=== PATIENT | female | born 1985 | race Caucasian/White ===

== ENCOUNTER 2019-05-08 14:36 | Inpatient (IN) ==
[2019-05-08] MEDS ORDERED: RINGER'S SOLUTION,LACTATED 1,000 ML IV ONE (18:30)
[2019-05-08] MEDS ORDERED: NALBUPHINE HCL 10 MG/ML AMPUL IV PRN ×2 (18:30)
[2019-05-08] MEDS ORDERED: ONDANSETRON 4 MG TAB.RAPDIS PO PRN (18:30)
[2019-05-08] MEDS ORDERED: LIDOCAINE HCL 50 ML VIAL PERI PRN (18:30)
[2019-05-08 18:43] LABS: Hemoglobin 13.6 gm/dL (12.5-16.0); Mean Cell Volume 90.7 fl (78-100); Mean Corpuscular Hemoglobin 30.8 pg (27-31); Mean Platelet Volume 9.2 fl (8-12.5); Neutrophil # 15.1 K/mm3 (1.3-6.0); Neutrophil % 91.6 % (42-75.0); Platelet Count 328 K/mm3 (150-450); Red Blood Count 4.41 M/mm3 (4.2-5.4); Red Cell Distribution Width 12.4 % (11.5-14.0); White Blood Count 16.5 K/mm3 (4.0-10.5)
[2019-05-08 18:57] LABS: BUN/Creatinine Ratio 22.5 (9.0-21.6)
[2019-05-08 18:58] LABS: Albumin * 2.6 gm/dl (3.4-5.0); Anion Gap 16.3 mmol/L (6.8-13.8); Bilirubin, Total 0.3 mg/dL (0.0-1.1); Ca. Corrected For Albumin 10.4 mg/dL (8.4-10.2); Calcium * 9.6 mg/dL (7.9-10.9); Carbon Dioxide 20.8 mmol/L (24-32.6); Potassium 4.1 mmol/L (3.4-4.6); Total Protein 7.1 gm/dL (6.2-8.2)
[2019-05-08] MEDS: MISOPROSTOL 100 MCG TABLET VG PRN (20:01)
[2019-05-08 20:16] LABS: Random Urine Total Protein 25.2 mg/dL (0-12)
[2019-05-08 20:26] LABS: Cocaine Ur Negative (NEGATIVE); Urine Barbiturate Negative (NEGATIVE); Urine Benzodiazepines Negative (NEGATIVE); Urine Opiates Negative (NEGATIVE); Urine PCP Negative (NEGATIVE); Urine THC Negative (NEGATIVE)
[2019-05-09] MEDS: MISOPROSTOL 100 MCG TABLET VG PRN ×3 (02:35→21:50)
[2019-05-09] MEDS: RINGER'S SOLUTION,LACTATED 1,000 ML IV PRN ×3 (06:28→23:54)
--- NOTE | 2019-05-09 08:06 | HP ---
Chief Complaint - Chief Complaint Date of Service: 05/09/19 Time of Service: 07:59 Chief Complaint: Labor induction History of Present Illness: The patient presents for an IOL due to worsening IHCP with her itching worsening. She starting to feel ctx on cytotec. She denies vb or lof. Fetus is active. Medical History (Updated 05/08/19 @ 14:20 by Hannah Good MD) Uterovaginal prolapse, incomplete (Acute) Onset Date: Unknown Patient uses pessary at times Pain management contract agreement (Acute) Onset Date: 2016 Narcotic drug use (Acute) Onset Date: 2016 Low back pain (Acute) Onset Date: 2012 Asymmetric sclerosis Insomnia (Acute) Onset Date: 2012 take prn Xanax to help with sleep Mixed incontinence (Acute) Onset Date: Unknown has pessary Headache (Acute) Onset Date: Unknown GERD (gastroesophageal reflux disease) (Acute) Onset Date: 2012 Depression (Acute) Onset Date: Unknown continue Zoloft unchanged, continue good diet and exercise Cervical dysplasia (Acute) Onset Date: Unknown Breast lump (Acute) Onset Date: Unknown Benign-right breast Asthma, intermittent (Acute) Onset Date: 2012 issued inhaler. If has more frequent sx will redo Advair or other inhaled steroid Asthma (Acute) Onset Date: Unknown Generalized anxiety disorder (Acute) Onset Date: 2012 Allergic rhinitis (Acute) Onset Date: 2012 advised OTC Claritin daily abnormal pap smear (Acute) Onset Date: Unknown Intrahepatic cholestasis of Onset Date: ~05/03/19 Surgical History: Surgical History (Updated 09/27/18 @ 08:35 by Salome Ardon LPN) H/O LEEP (Acute) Onset Date: 06/23/11 LEETZ/LEEP Abnormal colonoscopy (Acute) Onset Date: ~2012 GRIFFIN 1 S/P breast biopsy, right (Acute) Onset Date: ~2005 Family History: Family History (Updated 09/27/18 @ 08:38 by Salome Ardon LPN) Mother Depression Father Diabetes Hypertension Hyperlipemia Depression Brother Myocardial infarction Cancer Sister Depression Grandmother Cancer Grandmother CVA (cerebral vascular accident) Grandfather Drowning Grandfather Myocardial infarction Daughter Alive and well Social History: Preferred Language Venezuelan Smoking Status Current every day smoker (Last Updated 05/08/19 @ 14:20 by Hannah Good MD) No Social History Section defined Review Of Systems (GEN) - Review of Systems Generalized/Overall Review: Present: No Symptoms Reported Misc: All systems neg except as marked Allergies/Adverse Reactions: Allergies Allergy/AdvReac Type Severity Reaction Status Date / Time No Known Allergies Allergy Verified 05/08/19 13:57 seasonal Allergy Uncoded 09/20/18 14:59 Home Medications: HOME MEDICATIONS ursodiol 300 mg capsule 300 mg PO BID 14 Days #28 cap 05/03/19 [Last Taken 05/08/19 08:00] Exam - Exam Vital Signs: Vital Signs - Last Taken Temp 36.3 C 05/08/19 20:08 Pulse 78 05/08/19 20:08 Resp 16 05/08/19 20:08 BP 133/88 05/08/19 20:08 Pulse Ox 100 05/08/19 20:08 Constitutional: Present: Alert, Oriented x3, Cooperative, No distress Respiratory: Present: lungs clear, normal breath sounds Cardiovascular/Chest: Present: regular rate, rhythm, no murmur Abdomen: Present: soft, nontender, nondistended /Rectal: Present: Other - ft/60/-3 Extremity: Present: non-tender, no calf tenderness Skin Exam: Present: normal color, warm/dry, no cyanosis Appearance: Present: appropriate appearance Eye contact: Present: cooperative Thoughts: Present: normal thought pattern Diagnostic Studies: Abnormal Lab Results 05/08/19 05/08/19 05/08/19 Range/Units 18:40 18:40 18:45 WBC 16.5 H (4.0-10.5) K/mm3 Immature Gran % (Auto) 0.80 H (0.001-0.429) % Immature Gran # (Auto) 0.13 H (0.000-0.0310) K/mm3 Neutrophils % 91.6 H (42-75.0) % Lymphocytes % 6.4 L (20-51) % Neutrophils # 15.1 H (1.3-6.0) K/mm3 Lymphocytes # 1.06 L (1.5-3.5) k/mm3 Carbon Dioxide 20.8 L (24-32.6) mmol/L Anion Gap 16.3 H (6.8-13.8) mmol/L BUN/Creatinine Ratio 22.5 H (9.0-21.6) Calcium Adj for Albumin 10.4 H (8.4-10.2) mg/dL ALT 11 L (19-67) U/L Alkaline Phosphatase 205 H (50-170) U/L Albumin 2.6 L (3.4-5.0) gm/dl U Random Total Protein 25.2 H (0-12) mg/dL Laboratory Results WBC 16.5 K/mm3 (4.0-10.5) H 05/08/19 18:40 RBC 4.41 M/mm3 (4.2-5.4) 05/08/19 18:40 Hgb 13.6 gm/dL (12.5-16.0) 05/08/19 18:40 Hct 40.0 % (37.0-47.0) 05/08/19 18:40 MCV 90.7 fl (78-100) 05/08/19 18:40 MCH 30.8 pg (27-31) 05/08/19 18:40 MCHC 34.0 g/dl (32-36) 05/08/19 18:40 RDW 12.4 % (11.5-14.0) 05/08/19 18:40 Plt Count 328 K/mm3 (150-450) 05/08/19 18:40 MPV 9.2 fl (8-12.5) 05/08/19 18:40 Immature Gran % (Auto) 0.80 % (0.001-0.429) H 05/08/19 18:40 Immature Gran # (Auto) 0.13 K/mm3 (0.000-0.0310) H 05/08/19 18:40 91.6 % (42-75.0) H 05/08/19 18:40 6.4 % (20-51) L 05/08/19 18:40 0.9 % (0.0-9) 05/08/19 18:40 0.1 % (0.0-3.0) 05/08/19 18:40 0.2 % (0.0-1.0) 05/08/19 18:40 Nucleated RBC % 0.0 k/mm3 (0-1) 05/08/19 18:40 15.1 K/mm3 (1.3-6.0) H 05/08/19 18:40 1.06 k/mm3 (1.5-3.5) L 05/08/19 18:40 0.2 k/mm3 (0.0-1.0) 05/08/19 18:40 0.0 k/mm3 (0.0-0.7) 05/08/19 18:40 Absolute Basophils 0.0 k/mm3 (0.0-0.1) 05/08/19 18:40 Sodium 138 mmol/L (132-142) 05/08/19 18:40 138 mmol/L (130-142) 05/08/19 18:40 Potassium 4.1 mmol/L (3.4-4.6) 05/08/19 18:40 Chloride 105 mmol/L (97-106) 05/08/19 18:40 Carbon Dioxide 20.8 mmol/L (24-32.6) L 05/08/19 18:40 16.3 mmol/L (6.8-13.8) H 05/08/19 18:40 BUN 16 mg/dL (3-23) 05/08/19 18:40 0.71 mg/dL (0.4-1.4) 05/08/19 18:40 Est GFR (Non-Af Amer) 100 mL/min (60-130) D 05/08/19 18:40 22.5 (9.0-21.6) H 05/08/19 18:40 108 mg/dL (70-110) 05/08/19 18:40 Calcium 9.6 mg/dL (7.9-10.9) 05/08/19 18:40 Calcium Adj for Albumin 10.4 mg/dL (8.4-10.2) H 05/08/19 18:40 0.3 mg/dL (0.0-1.1) 05/08/19 18:40 AST 17 U/L (0-48) 05/08/19 18:40 ALT 11 U/L (19-67) L 05/08/19 18:40 205 U/L (50-170) H 05/08/19 18:40 7.1 gm/dL (6.2-8.2) 05/08/19 18:40 2.6 gm/dl (3.4-5.0) L 05/08/19 18:40 Ur Random Creatinine 149.7 mg/dL (60-200) 05/08/19 18:45 U Random Total Protein 25.2 mg/dL (0-12) H 05/08/19 18:45 U Dayhoit Prot/Creat Ratio 168 mg/gm (0-199) 05/08/19 18:45 Negative (NEGATIVE) 05/08/19 18:45 Negative (NEGATIVE) 05/08/19 18:45 Ur Phencyclidine Scrn Negative (NEGATIVE) 05/08/19 18:45 Urine Amphetamine Negative (NEGATIVE) 05/08/19 18:45 U Benzodiazepines Scrn Negative (NEGATIVE) 05/08/19 18:45 Negative (NEGATIVE) 05/08/19 18:45 Negative (NEGATIVE) 05/08/19 18:45 Blood Type B Positive 05/08/19 18:40 Antibody Screen Negative 05/08/19 18:40 Assessment/Plan - Narrative Narrative: 33 year old @ 36w 3d for IOL due to IHCP. She has received two doses of cytotec. Second dose of steroids this afternoon. Start pitocin when ctx space out. GBS negative: prophylaxis not indicated GHTN: BPs are normal, repeat labs are normal GBS negative: prophylaxis not indicated
[2019-05-09] MEDS: URSODIOL 300 MG CAPSULE PO SCH ×2 (08:57→21:12)
[2019-05-09] MEDS ORDERED: URSODIOL 300 MG CAPSULE PO SCH (09:00)
[2019-05-09] MEDS: OXYTOCIN/DEXTROSE 5%-WATER 30 UNITS/500 ML BAG IV ONE (11:16)
[2019-05-09] MEDS ORDERED: BETAMETHASONE ACETATE,SOD PHOS 6 MG/ML VIAL IM ONE (14:10)
--- NOTE | 2019-05-09 16:25 | PN ---
Progess Note - Interim Date: 05/09/19 Time: 16:24 Narrative: 05/09/19 16:24 The patient has been on pitocin without much change to her cervical exam. She is currently at 4 milliunits/min. Her cervix is posterior and to the right. /5. Stop pitocin and restart cytotec as the patient needs more ripening FHT cat 1
--- NOTE | 2019-05-09 17:12 | PN ---
Progess Note - Interim Date: 05/09/19 Time: 17:11 Narrative: 05/09/19 17:11 Cytotec 25 mcg was placed in the posterior fornix FHT cat 1
[2019-05-10] MEDS: MISOPROSTOL 100 MCG TABLET VG PRN (02:10)
[2019-05-10] MEDS ORDERED: DINOPROSTONE 10 MG SUPP.VAG VG ONE (07:53)
--- NOTE | 2019-05-10 08:04 | PN ---
Progess Note - Interim Date: 05/10/19 Time: 08:00 Narrative: 05/10/19 08:00 The patient received 3 doses of cytotec overnight. FHT cat 1 Cervidil inserted at 0800 and to be removed at 8 pm Pitocin to be started at 830 pm if the patient does not have tachysystole A bedside ultrasound was performed to confirm vertex presentation cvx is /-3
[2019-05-10] MEDS: RINGER'S SOLUTION,LACTATED 1,000 ML IV PRN ×2 (08:24→16:20)
[2019-05-10] MEDS: URSODIOL 300 MG CAPSULE PO SCH ×2 (09:21→21:05)
[2019-05-10] MEDS: OXYTOCIN/DEXTROSE 5%-WATER 30 UNITS/500 ML BAG IV ONE (21:05)
[2019-05-11] MEDS: RINGER'S SOLUTION,LACTATED 1,000 ML IV PRN (01:02)
--- NOTE | 2019-05-11 07:46 | PN ---
Progess Note - Interim Date: 05/11/19 Time: 07:45 Narrative: 05/11/19 07:45 Patient is comfortable on 14 milliunits of pitocin cvx is 1.5/50/-2 AROM for a large amount of clear fluid FHT cat 1
[2019-05-11] MEDS: URSODIOL 300 MG CAPSULE PO SCH ×2 (08:59→21:30)
[2019-05-11] MEDS ORDERED: OXYTOCIN/DEXTROSE 5%-WATER 30 UNITS/500 ML BAG IV ONE (11:25)
[2019-05-11] MEDS ORDERED: BISACODYL 10 MG SUPP.RECT RC PRN (11:25)
[2019-05-11] MEDS ORDERED: diphenhydrAMINE HCL 25 MG CAPSULE PO PRN (11:25)
[2019-05-11] MEDS ORDERED: IBUPROFEN 800 MG TABLET PO PRN (11:25)
[2019-05-11] MEDS ORDERED: HYDROCORTISONE 30 APPL TUBE TP PRN (11:25)
[2019-05-11] MEDS ORDERED: oxyCODONE HCL/ACETAMINOPHEN 1 TAB TABLET PO PRN ×2 (11:25)
[2019-05-11] MEDS ORDERED: BENZOCAINE/MENTHOL 81 SPRAY CAN TP PRN (11:25)
[2019-05-11] MEDS ORDERED: GLYCERIN/WITCH HAZEL LEAF 40 APPL BOX TP PRN (11:25)
[2019-05-11] MEDS ORDERED: SENNOSIDES 8.6 MG TABLET PO PRN (11:25)
--- NOTE | 2019-05-11 11:39 | OR ---
Operative Report - Dictated Report Narrative: Date of delivery: 05/11/2019 Time of delivery: 10:33 Gender: female APGARS: 9/9 weight: 2845 grams Procedure: Description of the procedure: The patient is a 33 year old @ 36w 5d who had a very long induction. She did not respond to either cytotec or pitocin for ripening. She progressed to 1.5 cm to after cervidil. She progressed quickly after AROM. She progressed to complete dilation. She delivered a viable female in the direct OA presentation. Cord blood was collected. The placenta was delivered by expression. There were no lacerations. Lacerations: none EBL: 100 mL Complications: none History for MU Definition: * The number of deliveries resulting in a live the patient experienced prior to current hospitalization * The previous delivery of live twins or any live multiple gestation is considered one live event. *If primagravida or nulliparous is documented select zero for the number of previous live births. Live Events: 2
[2019-05-11] MEDS: DOCUSATE SODIUM 100 MG CAPSULE PO SCH (21:30)
--- NOTE | 2019-05-12 07:51 | PN ---
Subjective - Date and Time Seen Date: 05/12/19 Time: 07:50 Subjective Narrative: Patient without complaints Objective Objective Narrative: See vital signs - Review of Systems Generalized/Overall Review: Reports: No Symptoms Reported Misc: All systems neg except as marked - Vitals Vitals: Last Vital Signs Temp 36.5 C 05/12/19 00:11 Pulse 66 05/12/19 00:11 Resp 16 05/12/19 00:11 BP 116/57 05/12/19 00:11 Pulse Ox 100 05/12/19 00:11 - Exam Constitutional: Present: Alert, Oriented x3, Cooperative, No distress Abdomen: Present: soft, nontender, nondistended - fundus is firm Extremity: Present: non-tender, no calf tenderness Skin Exam: Present: normal color, warm/dry, no cyanosis Appearance: Present: appropriate appearance Eye contact: Present: cooperative Thoughts: Present: normal thought pattern Assessment/Plan Plan Narrative: PPD 1 s/p Doing well Discharge tomorrow or today if cleared by peds
[2019-05-12] MEDS: DOCUSATE SODIUM 100 MG CAPSULE PO SCH ×2 (09:19→22:35)
--- NOTE | 2019-05-13 00:45 | PN ---
Subjective - Date and Time Seen Date: 05/13/19 Time: 00:43 Subjective Narrative: Patient without complaints Objective Objective Narrative: See vital signs - Review of Systems Generalized/Overall Review: Reports: No Symptoms Reported Misc: All systems neg except as marked - Vitals Vitals: Last Vital Signs Temp 36.8 C 05/12/19 19:29 Pulse 65 05/12/19 19:29 Resp 14 05/12/19 19:29 BP 132/81 05/12/19 19:29 Pulse Ox 99 05/12/19 19:29 - Exam Constitutional: Present: Alert, Oriented x3, Cooperative, No distress Abdomen: Present: soft, nontender, nondistended - fundus is firm Extremity: Present: non-tender, no calf tenderness Skin Exam: Present: normal color, warm/dry, no cyanosis Appearance: Present: appropriate appearance Eye contact: Present: cooperative Thoughts: Present: normal thought pattern Assessment/Plan Plan Narrative: PPD 2 s/p Doing well Discharge today
[2019-05-13 07:14] VITALS: BP 142/84
[2019-05-13] MEDS: DOCUSATE SODIUM 100 MG CAPSULE PO SCH (12:07)
== END 2019-05-13 15:10 | disposition home or self-care (01) | DRG 807 ==
LOC: OB 18:19
PROVIDERS: ADMIT Obstetrics & Gynecology; ATTEND Obstetrics & Gynecology
CPT/HCPCS: 36415; 59025; 80053; 80307; 82570; 84155; 84156; 85025; 86850; 88307

== ENCOUNTER 2020-09-10 15:52 | Inpatient (IN) ==
[2020-09-10] MEDS ORDERED: LIDOCAINE HCL 50 ML VIAL PERI PRN (19:46)
[2020-09-10] MEDS ORDERED: OXYTOCIN/0.9 % SODIUM CHLORIDE 30 UNITS/500 ML BAG IV ONE (19:46)
[2020-09-10] MEDS ORDERED: ONDANSETRON 4 MG TAB.RAPDIS PO PRN (19:46)
[2020-09-10] MEDS ORDERED: BUTORPHANOL TARTRATE 2 MG/ML VIAL IV PRN ×2 (19:46)
[2020-09-10] MEDS ORDERED: RINGER'S SOLUTION,LACTATED 1,000 ML IV ONE (19:46)
[2020-09-10] MEDS: DINOPROSTONE 10 MG SUPP.VAG VG ONE ×2 (19:52)
[2020-09-10] MEDS: RINGER'S SOLUTION,LACTATED 1,000 ML IV PRN (19:57)
[2020-09-10 23:04] LABS: Cocaine Ur Negative (NEGATIVE); Urine Barbiturate Negative (NEGATIVE); Urine Benzodiazepines Negative (NEGATIVE); Urine Opiates Negative (NEGATIVE); Urine PCP Negative (NEGATIVE); Urine THC Negative (NEGATIVE)
[2020-09-11] MEDS: RINGER'S SOLUTION,LACTATED 1,000 ML IV PRN ×4 (03:12→19:29)
[2020-09-11] MEDS ORDERED: ACETAMINOPHEN 500 MG TABLET PO ONE (11:18)
[2020-09-11 11:42] LABS: Hemoglobin 11.9 gm/dL (12.5-16.0); Mean Cell Volume 91.6 fl (78-100); Mean Corpuscular Hemoglobin 29.5 pg (27-31); Mean Corpuscular Hgb Conc 32.2 g/dl (32-36); Mean Platelet Volume 8.8 fl (8-12.5); Neutrophil # 7.9 K/mm3 (1.3-6.0); Neutrophil % 73.9 % (42-75.0); Platelet Count 243 K/mm3 (150-450); Red Blood Count 4.04 M/mm3 (4.2-5.4); Red Cell Distribution Width 12.6 % (11.5-14.0); White Blood Count 10.7 K/mm3 (4.0-10.5)
--- NOTE | 2020-09-11 12:16 | HP ---
Chief Complaint - Chief Complaint Date of Service: 09/11/20 Time of Service: 12:08 Chief Complaint: labor induction History of Present Illness: The patient is a 35 year old who presents for a medical induction of labor due to IHCP. She reports contractions. She denies vb or lof. Fetus is active. Medical History (Last Reviewed 09/11/20 @ 12:09 by Hannah oGod MD) Uterovaginal prolapse, incomplete (Acute) Onset Date: Unknown Patient uses pessary at times Pain management contract agreement (Acute) Onset Date: 2016 Narcotic drug use (Acute) Onset Date: 2016 Low back pain (Acute) Onset Date: 2012 Asymmetric sclerosis Insomnia (Acute) Onset Date: 2012 take prn Xanax to help with sleep Mixed incontinence (Acute) Onset Date: Unknown has pessary Headache (Acute) Onset Date: Unknown GERD (gastroesophageal reflux disease) (Acute) Onset Date: 2012 Depression (Acute) Onset Date: Unknown continue Zoloft unchanged, continue good diet and exercise Cervical dysplasia (Acute) Onset Date: Unknown Breast lump (Acute) Onset Date: Unknown Benign-right breast Asthma, intermittent (Acute) Onset Date: 2012 issued inhaler. If has more frequent sx will redo Advair or other inhaled steroid Asthma (Acute) Onset Date: Unknown Generalized anxiety disorder (Acute) Onset Date: 2012 Allergic rhinitis (Acute) Onset Date: 2012 advised OTC Claritin daily abnormal pap smear (Acute) Onset Date: Unknown Intrahepatic cholestasis of Onset Date: ~05/03/19 Surgical History: Surgical History (Last Reviewed 09/11/20 @ 12:09 by Hannah Good MD) H/O LEEP (Acute) Onset Date: 06/23/11 LEETZ/LEEP Abnormal colonoscopy (Acute) Onset Date: ~2012 GRIFFIN 1 S/P breast biopsy, right (Acute) Onset Date: ~2005 Family History: Family History (Last Reviewed 09/11/20 @ 12:09 by Hannah Good MD) Mother Depression Father Diabetes Hypertension Hyperlipemia Depression Brother Myocardial infarction Cancer Sister Depression Grandmother Cancer Grandmother CVA (cerebral vascular accident) Grandfather Drowning Grandfather Myocardial infarction Daughter Alive and well Social History: (Last Reviewed 09/11/20 @ 12:10 by Hannah Good MD) Social History: fci: No Marital status: Single household members: significant other number of children: 2 current occupational status: unemployed current occupational exposures/hazards: No Highest level of school completed/degree received: high school graduate Sexually Active: Yes Service: No Tobacco: Smoking Status: Current every day smoker tobacco type: cigarettes Smoking cigarettes per day: 10 Alcohol: alcohol intake: former alcohol intake frequency: holiday/special occasion details: none since LMP Substance Use: substance use type: does not use Dietary Habits: caffeine: Yes caffeine comment: 3 weekly Type: carbonated beverages Exercise: frequency: does not exercise Review Of Systems (GEN) - Review of Systems Generalized/Overall Review: Present: No Symptoms Reported Misc: All systems neg except as marked Allergies/Adverse Reactions: Allergies Allergy/AdvReac Type Severity Reaction Status Date / Time No Known Allergies Allergy Verified 09/10/20 21:00 seasonal Allergy Uncoded 09/20/18 14:59 Home Medications: HOME MEDICATIONS prenat.vits,mindi,nda-nlho-arrsy 1 tab PO DAILY #90 tab 02/28/20 [Last Taken 08/25 05/13] ursodiol 300 mg capsule 300 mg PO BID #60 cap 08/19/20 [Last Taken 09/10/20] Acetaminophen [Tylenol] 1,000 mg PO TID PRN 09/10/20 [Last Taken Unknown] Exam - Exam Vital Signs: 132/69 72 16 36.4 98% Constitutional: Present: Alert, Oriented x3, Cooperative, No distress ENT Exam: Present: hearing grossly normal Eye Exam: bilateral eye: normal inspection Neck: Present: normal inspection Back Exam: Present: normal inspection Breasts: Present: Exam deferred Respiratory: Present: lungs clear, normal breath sounds, no respiratory distress Cardiovascular/Chest: Present: regular rate, rhythm Abdomen: Present: soft, nontender, nondistended /Rectal: Present: Other - fingertip/thick/posterior/- 5 Extremity: Present: non-tender, no calf tenderness Skin Exam: Present: normal color, warm/dry, no cyanosis Neurologic: Present: alert, normal mood/affect, oriented x 3 Appearance: Present: appropriate appearance, appropriate insight, neat, no memory impairment Eye contact: Present: cooperative, good eye contact, normal speech Thoughts: Present: normal thought pattern Diagnostic Studies: Abnormal Lab Results 09/11/20 Range/Units 11:30 WBC 10.7 H (4.0-10.5) K/mm3 RBC 4.04 L (4.2-5.4) M/mm3 Hgb 11.9 L (12.5-16.0) gm/dL Immature Gran % (Auto) 1.00 H (0.001-0.429) % Immature Gran # (Auto) 0.11 H (0.000-0.0310) K/mm3 Lymphocytes % 19.3 L (20-51) % Neutrophils # 7.9 H (1.3-6.0) K/mm3 Laboratory Results WBC 10.7 K/mm3 (4.0-10.5) H 09/11/20 11:30 RBC 4.04 M/mm3 (4.2-5.4) L 09/11/20 11:30 Hgb 11.9 gm/dL (12.5-16.0) L 09/11/20 11:30 Hct 37.0 % (37.0-47.0) 09/11/20 11:30 MCV 91.6 fl (78-100) 09/11/20 11:30 MCH 29.5 pg (27-31) 09/11/20 11:30 MCHC 32.2 g/dl (32-36) 09/11/20 11:30 RDW 12.6 % (11.5-14.0) 09/11/20 11:30 Plt Count 243 K/mm3 (150-450) 09/11/20 11:30 MPV 8.8 fl (8-12.5) 09/11/20 11:30 Immature Gran % (Auto) 1.00 % (0.001-0.429) H 09/11/20 11:30 Immature Gran # (Auto) 0.11 K/mm3 (0.000-0.0310) H 09/11/20 11:30 Neutrophils % 73.9 % (42-75.0) 09/11/20 11:30 Lymphocytes % 19.3 % (20-51) L 09/11/20 11:30 Monocytes % 4.4 % (0.0-9) 09/11/20 11:30 Eosinophils % 1.0 % (0.0-3.0) 09/11/20 11:30 Basophils % 0.4 % (0.0-1.0) 09/11/20 11:30 Nucleated RBC % 0.0 k/mm3 (0-1) 09/11/20 11:30 Neutrophils # 7.9 K/mm3 (1.3-6.0) H 09/11/20 11:30 Lymphocytes # 2.06 k/mm3 (1.5-3.5) 09/11/20 11:30 Monocytes # 0.5 k/mm3 (0.0-1.0) 09/11/20 11:30 Eosinophils # 0.1 k/mm3 (0.0-0.7) 09/11/20 11:30 Absolute Basophils 0.0 k/mm3 (0.0-0.1) 09/11/20 11:30 Urine Opiates Screen Negative (NEGATIVE) 09/10/20 21:30 Barbiturate Screen Negative (NEGATIVE) 09/10/20 21:30 Ur Phencyclidine Scrn Negative (NEGATIVE) 09/10/20 21:30 Urine Amphetamine Negative (NEGATIVE) 09/10/20 21:30 U Benzodiazepines Scrn Negative (NEGATIVE) 09/10/20 21:30 Urine Cocaine Screen Negative (NEGATIVE) 09/10/20 21:30 Urine Marijuana (THC) Negative (NEGATIVE) 09/10/20 21:30 Blood Type B Positive 09/10/20 20:00 Antibody Screen Negative 09/10/20 20:00 Assessment/Plan - Narrative Narrative: 35 year old at 37w 0d 1. Medical IOL due to IHCP: s/p cervidil x 12 hours. The patient's cervix is fingertip and thus a Blum balloon was placed using a speculum and 23 mL of saline were placed in the Blum balloon. Contractions are spacing out and becoming less painful and thus will start pitocin 2. GBS negative - Assessment/Plan (1) Encounter for induction of labor Problem: Acute (2) 37 weeks gestation of Problem: Acute (3) History of methamphetamine use Problem: Acute (4) AMA (advanced maternal age) multigravida 35+ Problem: Acute Qualifiers: Trimester: third trimester (5) Intrahepatic cholestasis of in third trimester Problem: Acute (6) H/O LEEP Problem: Acute (7) Asthma, intermittent Problem: Acute Qualifiers: Asthma severity: mild Asthma complication type: uncomplicated Qualified Code(s): J45.20 - Mild intermittent asthma, uncomplicated
[2020-09-11 12:21] LABS: Random Urine Total Protein 13.2 mg/dL (0-12)
[2020-09-11 12:25] LABS: Albumin * 2.4 gm/dl (3.4-5.0); Anion Gap 13.9 mmol/L (6.8-13.8); BUN/Creatinine Ratio 13.3 (9.0-21.6); Bilirubin, Total 0.5 mg/dL (0.0-1.1); Ca. Corrected For Albumin 9.6 mg/dL (8.4-10.2); Calcium * 8.6 mg/dL (7.9-10.9); Carbon Dioxide 21.2 mmol/L (24-32.6); Potassium 4.1 mmol/L (3.4-4.6); Total Protein 6.5 gm/dL (6.2-8.2)
[2020-09-11] MEDS ORDERED: ACETAMINOPHEN 500 MG TABLET ONE (12:36)
--- NOTE | 2020-09-11 18:17 | PN ---
Magen Note - Interim Date: 09/11/20 Time: 18:16 Narrative: 09/11/20 18:16 Patient comfortable without epidural cvx 4-5/90/-2 AROM for clear fluid FHT cat 1 ctx q 1-3 minutes
[2020-09-11] MEDS ORDERED: ACETAMINOPHEN 500 MG TABLET PO PRN (20:07)
[2020-09-11] MEDS ORDERED: BENZOCAINE/MENTHOL 81 SPRAY CAN TP PRN (23:50)
[2020-09-11] MEDS ORDERED: OXYTOCIN/0.9 % SODIUM CHLORIDE 30 UNITS/500 ML BAG IV ONE (23:50)
[2020-09-11] MEDS ORDERED: GLYCERIN/WITCH HAZEL LEAF 40 APPL BOX TP PRN (23:50)
[2020-09-11] MEDS ORDERED: HYDROCORTISONE 30 APPL TUBE TP PRN (23:50)
[2020-09-11] MEDS ORDERED: diphenhydrAMINE HCL 25 MG CAPSULE PO PRN (23:50)
[2020-09-11] MEDS ORDERED: BISACODYL 10 MG SUPP.RECT RC PRN (23:50)
[2020-09-11] MEDS ORDERED: SENNOSIDES 8.6 MG TABLET PO PRN (23:50)
[2020-09-11] MEDS ORDERED: HYDROcodone/ACETAMINOPHEN 1 EACH TABLET PO PRN (23:50)
--- NOTE | 2020-09-11 23:50 | OR ---
Operative Report - Dictated Report Narrative: Date of delivery: 09/11/2020 Time of delivery: 2337 Gender: male weight: grams APGARS: 8/8 Procedure: Description of the procedure: 35 year old at 37w 0d s/p medical induction for IHCP. She progressed to complete dilation. She delivered a viable male in FARZAD presentation. A tight nuchal cord was noted and thus the cord was cut at the perineum. The shoulders delivered without any difficulty followed by the rest of the infant. Cord blood was collected. The placenta delivered by expression and appeared intact. There were no lacerations. EBL: 200 mL Complications: none Specimens: cord blood, placenta History for Definition: * The number of deliveries resulting in a live the patient experienced prior to current hospitalization * The previous delivery of live twins or any live multiple gestation is considered one live event. *If primagravida or nulliparous is documented select zero for the number of previous live births. Live Events: 3
[2020-09-12] MEDS: IBUPROFEN 800 MG TABLET PO PRN ×3 (01:41→19:36)
[2020-09-12] MEDS: HYDROcodone/ACETAMINOPHEN 1 EACH TABLET PO PRN ×6 (01:41→23:55)
--- NOTE | 2020-09-12 08:52 | PN ---
Subjective - Date and Time Seen Date: 09/12/20 Time: 08:51 Objective - Vitals Vitals: Last Vital Signs Temp 36.4 C 09/12/20 07:38 Pulse 72 09/12/20 07:38 Resp 18 09/12/20 07:38 BP 116/54 09/12/20 07:38 Pulse Ox 97 09/12/20 07:38 Patient denies complaints. Lochia wnl abdomen - soft, nontender Uterus -firm, at umbilicus - 1 No calf tenderness Impression: day #1 - s/p spontaneous vaginal delivery. Plan: Continue routine care - Abnormal Lab Findings Abnormal Lab Findings: Abnormal Lab Results 09/11/20 09/11/20 09/11/20 Range/Units 11:30 11:30 11:47 WBC 10.7 H (4.0-10.5) K/mm3 RBC 4.04 L (4.2-5.4) M/mm3 Hgb 11.9 L (12.5-16.0) gm/dL Immature Gran % (Auto) 1.00 H (0.001-0.429) % Immature Gran # (Auto) 0.11 H (0.000-0.0310) K/mm3 Lymphocytes % 19.3 L (20-51) % Neutrophils # 7.9 H (1.3-6.0) K/mm3 Carbon Dioxide 21.2 L (24-32.6) mmol/L Anion Gap 13.9 H (6.8-13.8) mmol/L ALT 15 L (19-67) U/L Albumin 2.4 L (3.4-5.0) gm/dl U Random Total Protein 13.2 H (0-12) mg/dL
[2020-09-12] MEDS: DOCUSATE SODIUM 100 MG CAPSULE PO SCH ×2 (11:52→21:30)
[2020-09-12] MEDS: MULTIVITAMIN/IRON/FOLIC ACID 1 TAB TABLET PO SCH (15:02)
[2020-09-13] MEDS: IBUPROFEN 800 MG TABLET PO PRN ×2 (04:25→11:13)
[2020-09-13] MEDS: HYDROcodone/ACETAMINOPHEN 1 EACH TABLET PO PRN ×2 (04:25→07:47)
[2020-09-13 07:38] VITALS: BP 116/66
[2020-09-13] MEDS: DOCUSATE SODIUM 100 MG CAPSULE PO SCH ×2 (07:47→08:37)
[2020-09-13] MEDS: MULTIVITAMIN/IRON/FOLIC ACID 1 TAB TABLET PO SCH (08:37)
[2020-09-13] MEDS ORDERED: LIDOCAINE HCL/PF 2 ML VIAL ONE (14:10)
[2020-09-13] MEDS ORDERED: SUCROSE 24% 2 ML VIAL.NEB PO ONE (14:11)
--- NOTE | 2020-09-13 15:00 | PN ---
Subjective - Date and Time Seen Date: 09/13/20 Time: 14:59 Objective - Vitals Vitals: Last Vital Signs Temp 37.1 C 09/13/20 07:36 Pulse 64 09/13/20 07:36 Resp 18 09/13/20 07:36 BP 116/66 09/13/20 07:36 Pulse Ox 98 09/13/20 07:36 Patient denies complaints. Breast and bottlefeeding Lochia wnl abdomen - soft, nontender Uterus -firm, at umbilicus - 2 No calf tenderness Impression: day #2 - s/p spontaneous vaginal delivery. Plan: Routine discharge instructions
--- NOTE | 2020-09-13 17:17 | DS ---
OB Discharge Summary Delivery Date: 09/11/20 Delivery Time: 23:38 :: 4 Para:: 4 Gestational weeks:: 37 Gestational days:: 0 Intrapartum Procedures: Spontaneous Vaginal Delivery, Delivered /OP Complications: No Complications Discharge Diagnosis: Term -Delivered, Other - IHCP, AMA, Asthma, Anxiety - Discharge Information Date of Discharge: 09/13/20 Hospital Course: 35-year-old 4 para 3 at 37 weeks for induction of labor due to IHCP. Patient had an uncomplicated vaginal delivery and course. She was discharged on day 2 with routine discharge instructions. Discharge Location: Home Disposition: Home self-care Condition: Good Activity on Discharge:: Activity as tolerated, Pelvic Rest Discharge Diet: General/regular food Additional Patient Instructions (free text): Von has an appointment Wednesday with Ju Rivera at 1045 in the morning. Sami Yuen have an appointment with Dr. Good on September 26 at 9:30. Von's weight today is 6lbs 1.2oz. His blood type is O-, he has passed his hearing screen and his CHD screen, his metabolic screen has been drawn. Von's bili level at 29 hours was 6.2. Thank you for choosing [facility] for your special delivery. Please never hesitate to call if you have any questions or concerns. Prescriptions (Any new or edited meds): Ibuprofen [Motrin] 200 - 800 mg PO Q6H PRN #100 tab PRN Reason: Pain Complete Home Medications List: Complete Home Medication List: prenat.vits,mindi,swp-axrn-mqdud 1 tab PO DAILY #90 tab 02/28/20 Acetaminophen [Tylenol] 1,000 mg PO TID PRN 09/10/20 Ibuprofen [Motrin] 200 - 800 mg PO Q6H PRN #100 tab 09/13/20 - Plan Discharge to:: Home Follow up in office in:: 3-4 weeks - Information Weight (Grams): 2,930 Infant Sex: Male Score 1 min: 8 Score 5 min: 8 Circumcision: Yes Complications: None - 8
== END 2020-09-13 17:00 | disposition home or self-care (01) | DRG 805 ==
LOC: OB 18:46 → MS 09-12 15:17
PROVIDERS: ADMIT Obstetrics & Gynecology; ATTEND Obstetrics & Gynecology
DX: Z37.0 Single live birth; F15.11 Other stimulant abuse, in remission; O99.344 Other mental disorders complicating childbirth; K83.1 Obstruction of bile duct; O26.62 Liver and biliary tract disorders in childbirth; F41.9 Anxiety disorder, unspecified; O69.1XX0 Labor and delivery complicated by cord around neck, with compression, not applicable or unspecified; O75.89 Other specified complications of labor and delivery; Z3A.37 37 weeks gestation of pregnancy; J45.909 Unspecified asthma, uncomplicated